=== PATIENT | male | born 1985 | race Caucasian/White ===

== ENCOUNTER 2021-08-31 19:22 | Emergency (ER) | payer SELFPAY ==
[~2021-08-31 19:22] MED LIST: AMOXIL SUS250 MG/5 M PO; BACTROBAN OINT22 GM EXT; CLEOCIN HCL300 MG PO; CYCLOBENZAPRINE10 MG PO; IBUPROFEN600 MG PO; KEFLEX CAP 500500 MG PO; NAPROSYN500 MG PO; NORCO 5-325 TA1 EACH PO; NORFLEX 100 MG100 MG PO
[2021-08-31] MEDS ORDERED: IBUPROFEN600 MG PO (21:50)
== END 2021-08-31 22:50 | disposition home or self-care (01) ==
LOC: ER1 19:22
DX: M54.50 Low back pain, unspecified (principal); F17.210 Nicotine dependence, cigarettes, uncomplicated
CPT/HCPCS: 72100; 81001; 96372; 99283; J1100; J1885

== ENCOUNTER 2021-09-10 20:53 | Emergency (ER) | payer OTHER | END 2021-09-10 21:18 | disposition left against medical advice (07) | LOC: ER1 20:53 | DX: Z53.21 Procedure and treatment not carried out due to patient leaving prior to being seen by health care provider (principal) ==

== ENCOUNTER 2021-11-16 21:41 | Emergency (ER) | payer SELFPAY ==
[2021-11-16 23:05] LABS: HEMOGLOBIN 15.2 gm/dl (14.0-17.5); RED BLOOD COUNT 4.82 M/UL (4.20-5.50); WHITE BLOOD COUNT 7.9 K/UL (4.5-11.0)
[2021-11-16 23:40] LABS: BUN/CREATININE RATIO 13 (0-10)
== END 2021-11-17 02:05 | disposition home or self-care (01) ==
LOC: ER1 21:41
PROVIDERS: Family Medicine
DX: Z04.3 Encounter for examination and observation following other accident (principal); F17.200 Nicotine dependence, unspecified, uncomplicated
CPT/HCPCS: 71260; 80053; 82550; 82553; 83690; 84484; 85025; 93005; 96374; 99284; J2405; J7030; Q9967